=== PATIENT | female | born 1965 | race Caucasian/White ===

== ENCOUNTER 2023-12-01 08:40 | Emergency (ER) | payer OTHER, SELFPAY ==
[2023-12-01 09:02] VITALS: BP 144/87
--- NOTE | 2023-12-01 09:53 | ED.GENMED ---
History of Present Illness
General
Chief Complaint: Back Pain
Source: patient
Exam Limitations: none
Time Seen by Provider: 12/01/23 09:12
Nursing documentation reviewed up to this point in time: agreed with
Travel History
Have you had any contact with someone who has COVID-19?: No
Do you have any symptoms of coronavirus? Fever > 100 degrees, chills, cough, shortness of breath, sore throat, loss of taste or smell, muscle aches, or headache?: No
History of Present Illness
History of Present Illness:
58-year-old female with past medical history of chronic back pain presenting to the emergency department today with concerns of back pain to the right side starting last night progressing throughout the day did do yoga yesterday morning that she
thinks could have flared the discomfort. Some radiation down the right thigh but does not reach her foot. Denies numbness weakness changes in bowel movements nausea vomiting any fevers no history immunosuppression. Did have an MRI that confirmed
L5-S1 herniated disc. Had a spinal injection that seemed to help symptoms to some degree 2 weeks ago.
Review of Systems
Review of Systems
Allergies reviewed?: Yes
All Other Systems: ROS reviewed and negative except as documented in HPI and ROS
Phy Exam
Physical Exam
Physical Exam:
GENERAL: Alert , in no apparent distress
EYE: pupils equal and reactive
NECK: Supple, no significant adenopathy.
ENT: o/p clr, mmm.
CARDIAC: Regular rate and rhythm .
LUNGS: Clear breath sounds bilaterally, no acute respiratory distress, no wheezes/rales/rhonchi
ABDOMEN: Soft, without focal tenderness, no r/g, no cvat
NEUROLOGICAL: Alert and oriented, no focal neuro deficits normal neurologic evaluation lower extremities
SKIN: Warm and dry, skin intact.
MUSCULOSKELETAL: No edema, well perfused.
PSYCH: Normal and appropriate interaction.
Course
Orders/Labs/Results
Orders:
Orders
12/01/23 09:51
Dexamethasone [Decadron] 10 mg PO NOW STA
Diazepam [Valium] 5 mg PO NOW STA
Ibuprofen [Motrin] 800 mg PO NOW STA
Vital Signs
Initial and Last Documented VS:
Initial Vital Signs
Temp Pulse Resp BP Pulse Ox
99.1 F 72 17 144/87 100
12/01/23 09:02 12/01/23 09:02 12/01/23 09:02 12/01/23 09:02 12/01/23 09:02
Last Documented Vital Signs
Temp Pulse Resp BP Pulse Ox
99.1 F 76 20 129/85 98
12/01/23 09:02 12/01/23 11:00 12/01/23 11:00 12/01/23 11:00 12/01/23 11:00
MDM/Problems Addressed
MDM/Problems Addressed:
58-year-old female presenting to the emergency department with concerns of right-sided low back discomfort. Radiation down the right thigh does have a history of such. No red flag symptoms. Treated with muscle relaxer and anti-inflammatory.
Patient was reassessed after a few hours claims that symptoms were significantly improved. No red flag symptoms patient's stable for outpatient management return precautions given.
*Critical Care Note
Total Time (30-74mins, 75-104mins- exclusive of procedures): Not Applicable
ED Attending Note
-
Portions of this chart may have been created with voice recognition software.� Occasional wrong word or��sound alike� substitutions may have occurred due to the inherent limitations of voice recognition software.
Discharge Plan
Departure
Patient Disposition: Home (Routine Discharge)
Date of Disposition: 12/01/23
Time of Disposition: 11:58
Patient with high blood pressure during this ER visit?: No
Condition: Good
Covid-19: Not Applicable
Discharge Problem:
Low back pain
Instructions: Low Back Pain (DC)
Prescriptions:
New
cyclobenzaprine 10 mg tablet
10 mg PO HS PRN (Reason: muscle spasm) Qty: 7 0RF
prednisone 20 mg tablet
40 mg PO DAILY 4 Days Qty: 8 0RF
ibuprofen 600 mg tablet
600 mg PO Q6H PRN (Reason: Pain) 5 Days Qty: 14 0RF
Referrals:
Zonia Simons PA-C [Family Provider] -
Activity Restrictions/Additional Instructions:
You came to the emergency department today for concerns of back discomfort. Please take the prescribed medications over the next few days and follow close with your back doctor. Return to the emergency department for any worsening, new or
concerning symptoms.
Interventions
Interventions:
*Risk Screen - Suicide Last Done: 12/01/23 10:00
*General Assessment Last Done: 12/01/23 10:00
*Neglect/Abuse Screening Last Done: 12/01/23 10:00
*ED COVID-19 Vaccine History Last Done: 12/01/23 09:04
ED-Musculoskeletal Assessment Last Done: 12/01/23 10:00
[2023-12-01] MEDS: DECADRON 10 MG PO (10:04)
[2023-12-01] MEDS: VALIUM 5 MG PO (10:08)
[2023-12-01] MEDS: MOTRIN 800 MG PO (10:08)
[2023-12-01 11:00] VITALS: BP 129/85
== END 2023-12-01 12:47 | disposition home or self-care (01) ==
LOC: EMR 08:40
PROVIDERS: EMERGENCY PHYSICIAN Emergency Medicine; FAMILY PHYSICIAN Physician Assistant Medical
DX: M54.50 Low back pain, unspecified (principal)
CPT/HCPCS: 99283

== ENCOUNTER → 2024-04-13 14:12 | Outpatient (REF) | payer OTHER, SELFPAY | LOC: HWRAD 14:12 | PROVIDERS: ATTENDING PHYSICIAN Obstetrics & Gynecology Gynecology; FAMILY PHYSICIAN Physician Assistant Medical | DX: Z12.31 Encounter for screening mammogram for malignant neoplasm of breast (principal); Z00.00 Encounter for general adult medical examination without abnormal findings | CPT/HCPCS: 77063; 77067; 77080 ==

== ENCOUNTER → 2024-09-01 09:58 | Outpatient (REF) | payer OTHER, SELFPAY | LOC: HWRAD 09:58 | PROVIDERS: ATTENDING PHYSICIAN Physician Assistant Medical | DX: R05.3 Chronic cough (principal) | CPT/HCPCS: 71046 ==

== ENCOUNTER → 2025-05-11 13:43 | Outpatient (REF) | payer OTHER, SELFPAY | LOC: HWWDC 13:43 | PROVIDERS: ATTENDING PHYSICIAN Obstetrics & Gynecology Gynecology; FAMILY PHYSICIAN Physician Assistant Medical | DX: Z12.31 Encounter for screening mammogram for malignant neoplasm of breast (principal) | CPT/HCPCS: 77063; 77067 ==